=== PATIENT | male | born 1955 | race Hispanic/Latino ===

== ENCOUNTER 2018-05-06 20:43 | Emergency (ER) | payer BC ==
[~2018-05-06] VITALS: Ht 160 cm; Wt 90.7 kg
[2018-05-06] MEDS ORDERED: LOVASTATIN20 MG PO (21:05)
[2018-05-06] MEDS ORDERED: METOPROLOL SUCC50 MG PO (21:05)
[2018-05-06] MEDS ORDERED: ASPIRIN EC81 MG PO (21:05)
[2018-05-06] MEDS ORDERED: LOSARTAN POTASS50 MG PO (21:05)
[2018-05-06] MEDS ORDERED: METFORMIN HCL500 MG PO (21:05)
[2018-05-06] MEDS ORDERED: IBUPROFEN 600 MG TAB PO STA (21:07)
[2018-05-06] MEDS ORDERED: SODIUM CHLORIDE 0.9% 1000ML 1,000 ML IV SCH (21:15)
[2018-05-06 21:21] LABS: BASOPHILS % 0.2 % (0.0-1.0); EOSINOPHILS % 0.1 % (0.0-6.0); HEMATOCRIT 42.4 % (38.2-49.6); HEMOGLOBIN 14.9 g/dL (14.0-18.0); LYMPHOCYTES # (AUTO) 0.7 (1.0-3.2); LYMPHOCYTES % 4.7 % (18.0-39.1); MEAN CORPUSCULAR HEMOGLOBIN 30.1 pg (28-32); MEAN CORPUSCULAR HGB CONC 35.1 g/dL (31-35); MEAN CORPUSCULAR VOLUME 85.7 fL (81-99); MONOCYTES % 6.3 % (4.4-11.3); NEUTROPHILS # (AUTO) 13.8 (2.1-6.9); NEUTROPHILS % 88.3 % (38.7-80.0); PLATELET COUNT 219 x10e3/uL (140-360); RED BLOOD COUNT 4.95 x10e6/uL (4.3-5.7); RED CELL DISTRIBUTION WIDTH 12.8 % (11.7-14.4)
--- NOTE | 2018-05-06 21:39 | Diagnostic Imaging Report ---
EXAM: CHEST 2 VIEWS, PA and lateral INDICATION: Weak, fever, headache, cough COMPARISON: None FINDINGS: LINES/TUBES: None LUNGS: Bronchial thickening and faint left upper lung opacity. PLEURA: No effusions or pneumothorax. HEART AND MEDIASTINUM: Normal size and contour. BONES AND SOFT TISSUES: No acute findings. IMPRESSION: Bronchial thickening and faint left upper lung opacity. Findings could represent early infection in the acute setting. Follow-up PA and lateral view of the chest is recommended in 2 months. Signed by: Dr. Zainab Nova M.D. on 05/06/2018 9:36 PM
[2018-05-06] MEDS ORDERED: CEFTRIAXONE SOD 1 GM VIAL IV STA (21:40)
[2018-05-06 21:43] LABS: ANION GAP 14.6 mmol/L (8-16); BLOOD UREA NITROGEN 16 mg/dL (7-26); BUN/CREATININE RATIO 16 (6-25); CALCIUM 8.3 mg/dL (8.4-10.2); CARBON DIOXIDE 22 mmol/L (22-29); CHLORIDE 102 mmol/L (98-107); CREATININE, SERUM 0.97 mg/dL (0.72-1.25); EST GLOMERULAR FILTRATION RATE > 60 ML/MIN (60-); GLUCOSE 226 mg/dL (74-118); POTASSIUM 3.6 mmol/L (3.5-5.1); SODIUM 135 mmol/L (136-145)
[2018-05-06 22:22] VITALS: BP 107/68
== END 2018-05-06 22:27 | disposition home or self-care (01) ==
LOC: ER 20:43
DX: R50.9 Fever, unspecified (principal); R05 Cough; R51 Headache; J15.9 Unspecified bacterial pneumonia
CPT/HCPCS: 36415; 71046; 80048; 83605; 85025; 99284; J0696; J7030